=== PATIENT | female | born 1950 | race Caucasian/White ===

== ENCOUNTER → 2023-09-20 | Outpatient (CLI) | payer OTHER | END | disposition home or self-care (01) | LOC: RAH 14:54 | PROVIDERS: ATTEND Family Medicine | DX: N85.8 Other specified noninflammatory disorders of uterus (principal); R93.89 Abnormal findings on diagnostic imaging of other specified body structures; N95.0 Postmenopausal bleeding | CPT/HCPCS: 76830 ==

== ENCOUNTER → 2023-11-17 | Outpatient (CLI) | payer OTHER ==
[~2023-11-17] MED LIST: IOHEXOL-350 75 ML VIAL IV ONE
== END | disposition home or self-care (01) ==
LOC: RAH 09:37
PROVIDERS: ATTEND Obstetrics & Gynecology
DX: C54.1 Malignant neoplasm of endometrium (principal); K57.30 Diverticulosis of large intestine without perforation or abscess without bleeding; N85.2 Hypertrophy of uterus; I70.90 Unspecified atherosclerosis; M47.815 Spondylosis without myelopathy or radiculopathy, thoracolumbar region
CPT/HCPCS: 74178; Q9967

== ENCOUNTER → 2024-10-18 | Outpatient (CLI) | payer OTHER ==
--- NOTE | 2024-10-21 07:55 | HMCIMG ---
EXAM: CT Abdomen and Pelvis with IV contrast CLINICAL HISTORY: LLQ tenderness. History of malignant neoplasm of the endometrium. TECHNIQUE: Axial computed tomography images of the abdomen and pelvis with oral and intravenous contrast. CONTRAST: Oral and intravenous. COMPARISON: November 17, 2023. FINDINGS: LUNG BASES: The lung bases are clear. No pleural effusions are seen. LIVER: There is interval development of large 11.3 x 9 x 9.2 cm heterogenously enhancing hypodense lesion spanning the segments 6 and 7 with tethering of the right hepatic margin, of concern for metastasis. GALLBLADDER AND BILE DUCTS: As seen previously, there is dependent hyperdensity in the gallbladder which may represent small calculi. PANCREAS: Unremarkable. SPLEEN: Unremarkable. ADRENAL GLANDS: Unremarkable. KIDNEYS, URETERS, AND BLADDER: There are two stable small right renal cortical hypodensities, largest measuring 1 cm, which may represent small cysts. There is no hydronephrosis or hydroureter. No urinary calculi are seen. Thick-walled urinary bladder which may represent cystitis. STOMACH AND BOWEL: Unremarkable appearance of the stomach and bowel. No evidence of bowel obstruction. No evidence suggesting enteritis or colitis. There are multiple distal colonic diverticuli without acute diverticulitis. APPENDIX: Unremarkable. PERITONEUM: A new finding of multiple heterogenously enhancing clustered and discrete peritoneal lesions /deposits is seen on the current examination, located in the left upper quadrant right prehepatic space, left paracolic gutter, left adnexal pelvic peritoneal recess and the abdominopelvic location. 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 The largest peritoneal metastatic lesion is located in the right abdominopelvic location measuring 7.3 x 4.7 x 6 cm. The left pelvic peritoneal lesions are encasing the proximal sigmoid colon. There is trace fluid in the right perihepatic space, new since prior study. No intraperitoneal free air. LYMPH NODES: No lymphadenopathy is evident. REPRODUCTIVE: Interval hysterectomy. VASCULATURE: No evidence of abdominal aortic aneurysm. Subtle atheromatous calcifications are seen. BONES: No aggressive appearing osseous lesion. No acute osseous pathology evident. There is minimal degenerative anterolisthesis of L4 over L5, as seen previously. Again, noted is intervertebral disc calcification at L5/S1. There is focal osteopenia involving the pelvic bones, and L5 vertebrae, new since prior study, which may be related to radiotherapy. SOFT TISSUE: One of the above-mentioned pelvic peritoneal metastatic lesions is seen. Infiltrating the left rectus abdominus muscle measuring 5 x 4 x 4.3 cm approximately. IMPRESSION: Interval hysterectomy. 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 Minimal perihepatic space free fluid, new since prior study. Thick-walled urinary bladder which may represent cystitis. Stable small right renal cortical hypodense lesions may represent small cysts. Cholelithiasis as seen previously, without acute cholecystitis. /[place]
== END | disposition home or self-care (01) ==
LOC: RAH 10:48
PROVIDERS: ATTEND Internal Medicine Gastroenterology
DX: K57.30 Diverticulosis of large intestine without perforation or abscess without bleeding (principal); K80.20 Calculus of gallbladder without cholecystitis without obstruction; M85.88 Other specified disorders of bone density and structure, other site; R10.814 Left lower quadrant abdominal tenderness; Z90.710 Acquired absence of both cervix and uterus
CPT/HCPCS: 74178; Q9967